=== PATIENT | male | born 1985 | race Caucasian/White ===

== ENCOUNTER 2022-08-22 08:15 | Outpatient (RCR) | payer OTHER | END 2022-09-05 | disposition home or self-care (01) | LOC: WSPT | DX: S83.001A Unspecified subluxation of right patella, initial encounter (principal); X58.XXXA Exposure to other specified factors, initial encounter ==

== ENCOUNTER 2024-02-11 12:53 | Emergency (ER) | payer SELFPAY ==
[~2024-02-11] VITALS: Ht 185.4 cm; Wt 88.6 kg
[2024-02-11 12:58] VITALS: TEMP 98.7
[2024-02-11 15:55] VITALS: BP 122/72; PULSE 63
== END 2024-02-11 15:56 | disposition home or self-care (01) ==
LOC: COL.ER 12:53
DX: S61.211A Laceration without foreign body of left index finger without damage to nail, initial encounter (principal); W31.89XA Contact with other specified machinery, initial encounter